=== PATIENT | male | born 1930 | race Caucasian/White ===

== ENCOUNTER 2019-01-13 17:41 | Emergency (ER) | payer MEDICARE, OTHER ==
[2019-01-13] MEDS ORDERED: HYDROCODONE/ACETAMINOPHEN 10/325 MG TAB ONE (19:43)
== END 2019-01-13 21:02 | disposition home or self-care (01) ==
LOC: EDH 17:41
DX: S81.802A Unspecified open wound, left lower leg, initial encounter (principal); X58.XXXA Exposure to other specified factors, initial encounter; Y93.89 Activity, other specified; Y92.89 Other specified places as the place of occurrence of the external cause; Y99.8 Other external cause status

== ENCOUNTER 2019-01-15 17:59 | Emergency (ER) | payer OTHER ==
[~2019-01-15] VITALS: Ht 175.3 cm; Wt 120.7 kg
[2019-01-15 19:36] LABS: HEMATOCRIT 41.6 % (42-54); MEAN CORPUSCULAR HEMOGLOBIN 29.1 pg (27.0-33.0); MEAN CORPUSCULAR VOLUME 88.1 fL (79-99); MONOCYTES % (AUTO) 12.8 % (3.0-13.0); NEUTROPHILS % (AUTO) 53.2 % (40.0-77.0); PLATELET COUNT (AUTO) 222 K/uL (130-400); RED BLOOD CELL COUNT(AUTO) 4.72 MIL/uL (4.50-6.20); RED CELL DISTRIBUTION WIDTH 14.5 % (11.0-15.5); WHITE BLOOD COUNT (AUTO) 5.5 K/uL (4.8-10.8)
[2019-01-15 19:45] LABS: CREATININE 1.4 mg/dL (0.5-1.5); POTASSIUM 4.3 mmol/L (3.5-5.1)
[2019-01-15 19:50] LABS: ALBUMIN 2.9 g/dL (3.5-5.0); BILIRUBIN,TOTAL 0.3 mg/dL (0.2-1.0); TOTAL PROTEIN, SERUM 7.1 g/dL (6.0-8.3)
[2019-01-15 20:02] LABS: B-TYPE NATRIURETIC PEPTIDE 47 pg/mL (0-100)
[2019-01-15] MEDS ORDERED: ZINC OXIDE OINT 30GM TUBE TP SCH (21:45)
== END 2019-01-15 22:21 | disposition home or self-care (01) ==
LOC: EDH 17:59
DX: I87.2 Venous insufficiency (chronic) (peripheral) (principal); R60.0 Localized edema; Z87.891 Personal history of nicotine dependence
CPT/HCPCS: 36415; 80053; 83880; 85025; 93005

== ENCOUNTER 2019-02-13 20:35 | Emergency (ER) | payer OTHER ==
[2019-02-13 21:27] LABS: BASOPHILS % (AUTO) 1.3 % (0.0-5.0); EOSINOPHILS % (AUTO) 4.8 % (0.0-8.0); HEMATOCRIT 39.5 % (42-54); LYMPHOCYTES % (AUTO) 25.3 % (21.0-51.0); MEAN CORPUSCULAR HEMOGLOBIN 29.5 pg (27.0-33.0); MEAN CORPUSCULAR HGB CONC 33.1 g/dL (32.0-36.0); MEAN CORPUSCULAR VOLUME 89.1 fL (79-99); MONOCYTES % (AUTO) 11.8 % (3.0-13.0); NEUTROPHILS % (AUTO) 56.8 % (40.0-77.0); NUCLEATED RED BLOOD CELLS 0.1 % (0.0-0.19); PLATELET COUNT (AUTO) 203 K/uL (130-400); RED BLOOD CELL COUNT(AUTO) 4.44 MIL/uL (4.50-6.20); RED CELL DISTRIBUTION WIDTH 14.5 % (11.0-15.5); WHITE BLOOD COUNT (AUTO) 6.3 K/uL (4.8-10.8)
[2019-02-13 21:40] LABS: CREATININE 1.2 mg/dL (0.5-1.5); POTASSIUM 4.5 mmol/L (3.5-5.1)
[2019-02-13 21:45] LABS: ALBUMIN 2.9 g/dL (3.5-5.0); BILIRUBIN,TOTAL 0.3 mg/dL (0.2-1.0); TOTAL PROTEIN, SERUM 7.3 g/dL (6.0-8.3)
[2019-02-13 22:07] LABS: B-TYPE NATRIURETIC PEPTIDE 67 pg/mL (0-100)
== END 2019-02-14 00:18 | disposition home or self-care (01) ==
LOC: EDH 20:35
DX: I87.2 Venous insufficiency (chronic) (peripheral) (principal); R60.0 Localized edema
CPT/HCPCS: 36415; 80053; 83880; 84145; 85025

== ENCOUNTER → 2019-02-19 | Outpatient (CLI) | payer OTHER ==
[2019-02-19 13:04] VITALS: BP 141/67
== END | disposition home or self-care (01) ==
LOC: WHH 09:30
PROVIDERS: ATTEND Surgery
DX: I83.018 Varicose veins of right lower extremity with ulcer other part of lower leg (principal); L97.811 Non-pressure chronic ulcer of other part of right lower leg limited to breakdown of skin; I83.028 Varicose veins of left lower extremity with ulcer other part of lower leg; L97.821 Non-pressure chronic ulcer of other part of left lower leg limited to breakdown of skin; I10 Essential (primary) hypertension; I87.2 Venous insufficiency (chronic) (peripheral); I89.0 Lymphedema, not elsewhere classified; I25.10 Atherosclerotic heart disease of native coronary artery without angina pectoris; K21.9 Gastro-esophageal reflux disease without esophagitis; E78.5 Hyperlipidemia, unspecified; E03.9 Hypothyroidism, unspecified; Z87.891 Personal history of nicotine dependence
CPT/HCPCS: A6197; A6253; G0463; L3260

== ENCOUNTER → 2019-02-26 | Outpatient (CLI) | payer OTHER ==
[2019-02-26 13:11] VITALS: BP 162/95
== END | disposition home or self-care (01) ==
LOC: WHH 11:15
PROVIDERS: ATTEND Surgery
DX: I83.018 Varicose veins of right lower extremity with ulcer other part of lower leg (principal); L97.811 Non-pressure chronic ulcer of other part of right lower leg limited to breakdown of skin; I83.028 Varicose veins of left lower extremity with ulcer other part of lower leg; L97.821 Non-pressure chronic ulcer of other part of left lower leg limited to breakdown of skin; I10 Essential (primary) hypertension; I87.2 Venous insufficiency (chronic) (peripheral); I89.0 Lymphedema, not elsewhere classified; I25.10 Atherosclerotic heart disease of native coronary artery without angina pectoris; K21.9 Gastro-esophageal reflux disease without esophagitis; E78.5 Hyperlipidemia, unspecified; E03.9 Hypothyroidism, unspecified; Z87.891 Personal history of nicotine dependence
CPT/HCPCS: A6197 ×2; G0463

== ENCOUNTER → 2019-03-05 | Outpatient (CLI) | payer OTHER ==
[2019-03-05 14:09] VITALS: BP 175/82
== END | disposition home or self-care (01) ==
LOC: WHH 11:20
PROVIDERS: ATTEND Surgery
DX: I83.018 Varicose veins of right lower extremity with ulcer other part of lower leg (principal); L97.811 Non-pressure chronic ulcer of other part of right lower leg limited to breakdown of skin; I83.028 Varicose veins of left lower extremity with ulcer other part of lower leg; L97.821 Non-pressure chronic ulcer of other part of left lower leg limited to breakdown of skin; I10 Essential (primary) hypertension; I87.2 Venous insufficiency (chronic) (peripheral); I89.0 Lymphedema, not elsewhere classified; I25.10 Atherosclerotic heart disease of native coronary artery without angina pectoris; K21.9 Gastro-esophageal reflux disease without esophagitis; E78.5 Hyperlipidemia, unspecified; E03.9 Hypothyroidism, unspecified; Z87.891 Personal history of nicotine dependence
CPT/HCPCS: 87070; 87077 ×2; 87186 ×2; A6197; G0463

== ENCOUNTER → 2019-03-23 | Outpatient (CLI) | payer OTHER ==
[2019-03-23 13:23] VITALS: BP 138/64
== END | disposition home or self-care (01) ==
LOC: WHH 10:30
PROVIDERS: ATTEND Surgery
DX: I83.018 Varicose veins of right lower extremity with ulcer other part of lower leg (principal); L97.811 Non-pressure chronic ulcer of other part of right lower leg limited to breakdown of skin; I83.028 Varicose veins of left lower extremity with ulcer other part of lower leg; I10 Essential (primary) hypertension; I87.2 Venous insufficiency (chronic) (peripheral); I89.0 Lymphedema, not elsewhere classified; I25.10 Atherosclerotic heart disease of native coronary artery without angina pectoris; K21.9 Gastro-esophageal reflux disease without esophagitis; E78.5 Hyperlipidemia, unspecified; E03.9 Hypothyroidism, unspecified; Z87.891 Personal history of nicotine dependence
CPT/HCPCS: 73630; A6196; A6197; G0463

== ENCOUNTER → 2019-03-30 | Outpatient (CLI) | payer OTHER ==
[~2019-03-30] MED LIST: GENTAMICIN SULFATE 15 GM CREAM.GM. TP ONE
[2019-03-30 11:27] VITALS: BP 135/55
== END | disposition home or self-care (01) ==
LOC: WHH 10:30
PROVIDERS: ATTEND Surgery
DX: I83.018 Varicose veins of right lower extremity with ulcer other part of lower leg (principal); L97.811 Non-pressure chronic ulcer of other part of right lower leg limited to breakdown of skin; I83.028 Varicose veins of left lower extremity with ulcer other part of lower leg; L97.821 Non-pressure chronic ulcer of other part of left lower leg limited to breakdown of skin; I87.2 Venous insufficiency (chronic) (peripheral); I89.0 Lymphedema, not elsewhere classified; I10 Essential (primary) hypertension; I25.10 Atherosclerotic heart disease of native coronary artery without angina pectoris; K21.9 Gastro-esophageal reflux disease without esophagitis; E78.5 Hyperlipidemia, unspecified; E03.9 Hypothyroidism, unspecified; Z87.891 Personal history of nicotine dependence
CPT/HCPCS: A6197; G0463

== ENCOUNTER → 2019-04-06 | Outpatient (CLI) | payer OTHER ==
[~2019-04-06] MED LIST changes: +LIDOCAINE HCL 4% LTA SOL 4 ML VIAL TP ONE
[2019-04-06 12:10] VITALS: BP 175/70
== END | disposition home or self-care (01) ==
LOC: WHH 10:25
PROVIDERS: ATTEND Surgery
DX: I83.018 Varicose veins of right lower extremity with ulcer other part of lower leg (principal); L97.811 Non-pressure chronic ulcer of other part of right lower leg limited to breakdown of skin; I83.028 Varicose veins of left lower extremity with ulcer other part of lower leg; L97.821 Non-pressure chronic ulcer of other part of left lower leg limited to breakdown of skin; I10 Essential (primary) hypertension; I25.10 Atherosclerotic heart disease of native coronary artery without angina pectoris; K21.9 Gastro-esophageal reflux disease without esophagitis; E78.5 Hyperlipidemia, unspecified; E03.9 Hypothyroidism, unspecified; I87.2 Venous insufficiency (chronic) (peripheral); I89.0 Lymphedema, not elsewhere classified; Z87.891 Personal history of nicotine dependence
CPT/HCPCS: 87070; 87077; 87186; A6197; G0463

== ENCOUNTER → 2019-04-13 | Outpatient (CLI) | payer OTHER ==
[2019-04-13 16:50] VITALS: BP 163/73
== END | disposition home or self-care (01) ==
LOC: WHH 10:20
PROVIDERS: ATTEND Surgery
DX: I83.018 Varicose veins of right lower extremity with ulcer other part of lower leg (principal); L97.811 Non-pressure chronic ulcer of other part of right lower leg limited to breakdown of skin; I83.028 Varicose veins of left lower extremity with ulcer other part of lower leg; L97.821 Non-pressure chronic ulcer of other part of left lower leg limited to breakdown of skin; I89.0 Lymphedema, not elsewhere classified; I10 Essential (primary) hypertension; E78.5 Hyperlipidemia, unspecified; E03.9 Hypothyroidism, unspecified; K21.9 Gastro-esophageal reflux disease without esophagitis; I25.10 Atherosclerotic heart disease of native coronary artery without angina pectoris; I87.2 Venous insufficiency (chronic) (peripheral); Z87.891 Personal history of nicotine dependence
CPT/HCPCS: A6209; G0463

== ENCOUNTER → 2019-05-04 | Outpatient (CLI) | payer OTHER ==
[~2019-05-04] MED LIST changes: +CADEXOMER IODINE 40 GM GEL TP ONE; -GENTAMICIN SULFATE 15 GM CREAM.GM. TP ONE; -LIDOCAINE HCL 4% LTA SOL 4 ML VIAL TP ONE
[2019-05-04 15:47] VITALS: BP 168/72
== END | disposition home or self-care (01) ==
LOC: WHH 10:00
PROVIDERS: ATTEND Surgery
DX: I83.018 Varicose veins of right lower extremity with ulcer other part of lower leg (principal); L97.811 Non-pressure chronic ulcer of other part of right lower leg limited to breakdown of skin; I83.028 Varicose veins of left lower extremity with ulcer other part of lower leg; L97.821 Non-pressure chronic ulcer of other part of left lower leg limited to breakdown of skin; I25.10 Atherosclerotic heart disease of native coronary artery without angina pectoris; I10 Essential (primary) hypertension; I87.2 Venous insufficiency (chronic) (peripheral); I89.0 Lymphedema, not elsewhere classified; K21.9 Gastro-esophageal reflux disease without esophagitis; E78.5 Hyperlipidemia, unspecified; E03.9 Hypothyroidism, unspecified; Z87.891 Personal history of nicotine dependence
CPT/HCPCS: A6450; G0463

== ENCOUNTER → 2019-05-11 | Outpatient (CLI) | payer OTHER ==
[2019-05-11 16:16] VITALS: BP 154/78
== END | disposition home or self-care (01) ==
LOC: WHH 11:45
PROVIDERS: ATTEND Surgery
DX: I83.018 Varicose veins of right lower extremity with ulcer other part of lower leg (principal); L97.811 Non-pressure chronic ulcer of other part of right lower leg limited to breakdown of skin; I83.028 Varicose veins of left lower extremity with ulcer other part of lower leg; L97.821 Non-pressure chronic ulcer of other part of left lower leg limited to breakdown of skin; I25.10 Atherosclerotic heart disease of native coronary artery without angina pectoris; I10 Essential (primary) hypertension; I87.2 Venous insufficiency (chronic) (peripheral); I89.0 Lymphedema, not elsewhere classified; K21.9 Gastro-esophageal reflux disease without esophagitis; E78.5 Hyperlipidemia, unspecified; E03.9 Hypothyroidism, unspecified; Z87.891 Personal history of nicotine dependence
CPT/HCPCS: G0463

== ENCOUNTER → 2019-05-13 | Outpatient (CLI) | payer OTHER ==
[~2019-05-13] MED LIST changes: -CADEXOMER IODINE 40 GM GEL TP ONE; +LIDOCAINE HCL 4% LTA SOL 4 ML VIAL TP ONE
[2019-05-13 15:07] VITALS: BP 165/81
== END | disposition home or self-care (01) ==
LOC: WHH 11:00
PROVIDERS: ATTEND Surgery
DX: I83.018 Varicose veins of right lower extremity with ulcer other part of lower leg (principal); L97.811 Non-pressure chronic ulcer of other part of right lower leg limited to breakdown of skin; I83.028 Varicose veins of left lower extremity with ulcer other part of lower leg; L97.821 Non-pressure chronic ulcer of other part of left lower leg limited to breakdown of skin; I25.10 Atherosclerotic heart disease of native coronary artery without angina pectoris; I10 Essential (primary) hypertension; I87.2 Venous insufficiency (chronic) (peripheral); I89.0 Lymphedema, not elsewhere classified; K21.9 Gastro-esophageal reflux disease without esophagitis; E78.5 Hyperlipidemia, unspecified; E03.9 Hypothyroidism, unspecified; Z87.891 Personal history of nicotine dependence
CPT/HCPCS: A6452; G0463

== ENCOUNTER 2019-05-26 15:19 | Inpatient (IN) | payer OTHER ==
[~2019-05-26] VITALS: Ht 172.7 cm; Wt 116.0 kg
[2019-05-26] MEDS ORDERED: CLINDAMYCIN 900 MG/D5% WATER 50 ML IV ONE (16:00)
[2019-05-26 16:21] LABS: BASOPHILS % (AUTO) 1.3 % (0.0-5.0); EOSINOPHILS % (AUTO) 3.6 % (0.0-8.0); HEMATOCRIT 40.2 % (42-54); MEAN CORPUSCULAR HEMOGLOBIN 26.1 pg (27.0-33.0); MEAN CORPUSCULAR HGB CONC 30.3 g/dL (32.0-36.0); MEAN CORPUSCULAR VOLUME 86.1 fL (79-99); MONOCYTES % (AUTO) 10.9 % (3.0-13.0); NEUTROPHILS % (AUTO) 61.5 % (40.0-77.0); PLATELET COUNT (AUTO) 287 K/uL (130-400); RED BLOOD CELL COUNT(AUTO) 4.67 MIL/uL (4.50-6.20); RED CELL DISTRIBUTION WIDTH 15.4 % (11.0-15.5); WHITE BLOOD COUNT (AUTO) 6.1 K/uL (4.8-10.8)
[2019-05-26 16:22] LABS: APPEARANCE,URINE Clear (CLEAR); BILIRUBIN,URINE Negative (NEGATIVE); COLOR,URINE Yellow (YELLOW); GLUCOSE, URINE (UA) Negative (NEGATIVE); KETONES,URINE Negative (NEGATIVE); LEUKOCYTE ESTERASE ,URINE Negative (NEGATIVE); NITRATE,URINE Negative (NEGATIVE); OCCULT BLOOD,URINE Negative (NEGATIVE); PROTEIN,URINE Negative (NEGATIVE); UROBILINOGEN,URINE 0.2 mg/dL (0.2-1.0)
[2019-05-26 16:36] LABS: CREATININE 1.4 mg/dL (0.5-1.5); POTASSIUM 4.4 mmol/L (3.5-5.1)
[2019-05-26 16:38] LABS: INR 0.96 (0.85-1.15); PARTIAL THROMBOPLASTIN TIME 28.7 SEC (26.3-35.5); PROTHROMBIN TIME 10.4 SEC (9.6-11.6)
[2019-05-26 16:41] LABS: ALBUMIN 2.8 g/dL (3.5-5.0); BILIRUBIN,TOTAL 0.2 mg/dL (0.2-1.0); TOTAL PROTEIN, SERUM 7.7 g/dL (6.0-8.3)
[2019-05-26 16:51] LABS: B-TYPE NATRIURETIC PEPTIDE 52 pg/mL (0-100)
[2019-05-26] MEDS ORDERED: ACETAMINOPHEN 325 MG TAB PO PRN (17:15)
[2019-05-26] MEDS ORDERED: CLINDAMYCIN 900 MG/D5% WATER 50 ML IV SCH (17:15)
[2019-05-26] MEDS ORDERED: VANCOMYCIN PROTOCOL PER PHARMACY IV SCH (17:45)
[2019-05-26] MEDS ORDERED: ZOSYN 3.375GM+NS 50ML 50 ML IV ONE (18:30)
[2019-05-26] MEDS ORDERED: ACETAMINOPHEN-CODEINE 300/30MG TAB ONE (18:30)
[2019-05-26] MEDS ORDERED: COMPOUND IV REFRIGERATED 1 EACH IVSOLN MISC PRN (18:45)
[2019-05-26] MEDS ORDERED: VANCOMYCIN 1.5 GM in SODIUM CHLORIDE 0.9% 250 ML IV ONE (19:00)
[2019-05-26] MEDS ORDERED: ENOXAPARIN SODIUM 40 MG/0.4 ML SYRINGE SQ ONE (19:02)
[2019-05-26] MEDS: ZOSYN 3.375GM+NS 50ML 50 ML IV SCH (21:00)
[2019-05-26] MEDS ORDERED: MORPHINE SULFATE 4 MG/1ML SYG ONE (21:02)
[2019-05-26 23:00] VITALS: BP 144/77
[2019-05-27] MEDS ORDERED: PHARMACY COMMUNICATION MISC SCH (03:30)
[2019-05-27 04:00] VITALS: BP 126/62
[2019-05-27] MEDS: ZOSYN 3.375GM+NS 50ML 50 ML IV SCH ×3 (05:00→21:00)
[2019-05-27] MEDS ORDERED: VANCOMYCIN 1.5 GM in SODIUM CHLORIDE 0.9% 250 ML IV SCH (06:45)
[2019-05-27 08:24] VITALS: BP 137/66
[2019-05-27] MEDS: ONDANSETRON HCL 4 MG/2 ML VIAL IVP PRN ×2 (08:43→11:26)
[2019-05-27] MEDS: MORPHINE SULFATE 4 MG/1ML SYG IVP PRN ×3 (08:45→17:50)
[2019-05-27] MEDS: ENOXAPARIN SODIUM 40 MG/0.4 ML SYRINGE SQ SCH (10:19)
--- NOTE | 2019-05-27 10:26 | NUR ---
INITIAL SW met with patient. He states he lives alone and has no home services. Patient did state that he had been coming to wound care at this hospital. DME: [facility]. Patient reports that he is able to complete ADL's and drives. Patient is and is Service Connected. PCP is Dr. Abraham Blanco. Pharmacy is [facility]. Patient states he wants to go home when discharged. Addendum: 05/27/19 at 1029 by TU SANTIAGO SS Amended: Links added.
[2019-05-27] MEDS ORDERED: VANCOMYCIN 1GM+NS 250ML 250 ML IV SCH (11:00)
[2019-05-27 11:29] VITALS: BP 124/58
[2019-05-27] MEDS: ACETAMINOPHEN-CODEINE 300/30MG TAB PO PRN (11:32)
[2019-05-27 11:38] LABS: EOSINOPHILS % (AUTO) 3.2 % (0.0-8.0); HEMATOCRIT 35.6 % (42-54); LYMPHOCYTES % (AUTO) 17.3 % (21.0-51.0); MEAN CORPUSCULAR HEMOGLOBIN 26.3 pg (27.0-33.0); MEAN CORPUSCULAR HGB CONC 30.6 g/dL (32.0-36.0); MONOCYTES % (AUTO) 13.5 % (3.0-13.0); NEUTROPHILS % (AUTO) 64.4 % (40.0-77.0); PLATELET COUNT (AUTO) 242 K/uL (130-400); RED BLOOD CELL COUNT(AUTO) 4.14 MIL/uL (4.50-6.20); RED CELL DISTRIBUTION WIDTH 15.6 % (11.0-15.5); WHITE BLOOD COUNT (AUTO) 7.2 K/uL (4.8-10.8)
[2019-05-27 12:25] LABS: CREATININE 1.4 mg/dL (0.5-1.5); POTASSIUM 4.3 mmol/L (3.5-5.1)
--- NOTE | 2019-05-27 15:45 | NUR ---
[facility] Referral MD order for referral to [facility]. SW met with patient and informed him of MD order for [facility]. Patient signed GILMA/Choice form. Form placed in chart. Referral sent. Brandee Montelongo, Woods Laborer for [facility] informed. BONIFACIO also contacted Nanette Chu, Inpatient [employer] Taill[employer] Assembler at [place] and notified of referral. Pending acceptance and [place] authorization.
[2019-05-27 16:54] VITALS: BP 136/49
--- NOTE | 2019-05-27 17:00 | NUR ---
[facility] CONSULT PATIENT ASSESSED REQUESTED: PATIENT PRESENTS WITH VENOUS ULCERS TO BLE; [facility] RECOMMENDATIONS SUBMITTED. Addendum: 05/28/19 at 1530 by GABE LIM LVN LVN W Amended: Links added.
[2019-05-27 19:49] VITALS: BP 140/63
[2019-05-28] VITALS (7 sets, daily range): BP systolic 118–146; BP diastolic 57–86
[2019-05-28 05:47] LABS: BASOPHILS % (AUTO) 1.1 % (0.0-5.0); HEMATOCRIT 35.6 % (42-54); LYMPHOCYTES % (AUTO) 21.1 % (21.0-51.0); MEAN CORPUSCULAR HGB CONC 30.1 g/dL (32.0-36.0); MEAN CORPUSCULAR VOLUME 86.6 fL (79-99); MONOCYTES % (AUTO) 12.4 % (3.0-13.0); NEUTROPHILS % (AUTO) 60.8 % (40.0-77.0); PLATELET COUNT (AUTO) 239 K/uL (130-400); RED BLOOD CELL COUNT(AUTO) 4.11 MIL/uL (4.50-6.20); RED CELL DISTRIBUTION WIDTH 15.7 % (11.0-15.5); WHITE BLOOD COUNT (AUTO) 7.2 K/uL (4.8-10.8)
[2019-05-28] MEDS: VANCOMYCIN 1GM+NS 250ML 250 ML IV SCH (05:52)
[2019-05-28] MEDS: ZOSYN 3.375GM+NS 50ML 50 ML IV SCH ×3 (05:52→20:36)
[2019-05-28 05:57] LABS: CREATININE 1.3 mg/dL (0.5-1.5); POTASSIUM 4.3 mmol/L (3.5-5.1)
[2019-05-28] MEDS: ACETAMINOPHEN-CODEINE 300/30MG TAB PO PRN ×2 (10:14→16:52)
[2019-05-28] MEDS: HONEY 1 APPL/ML TUBE TP SCH (10:14)
[2019-05-28] MEDS: ENOXAPARIN SODIUM 40 MG/0.4 ML SYRINGE SQ SCH (11:02)
--- NOTE | 2019-05-28 11:51 | NUR ---
CM Note: [facility] pending approval CM spoke to Brandee saunders/Yan[facility], pt pending [facility] approval at this time. MOT semi-filled out pending to be completed once approve. EMS arranged and faxed for today, primary nurse to call [facility] once pt ready to DC. Primary nurse aware. CM to cont to follow up.
[2019-05-28] MEDS: MORPHINE SULFATE 4 MG/1ML SYG IVP PRN (23:44)
[2019-05-29 04:00] VITALS: BP 125/56
[2019-05-29] MEDS: ZOSYN 3.375GM+NS 50ML 50 ML IV SCH ×3 (04:11→21:00)
--- NOTE | 2019-05-29 06:04 | NUR ---
WOUND CARE STASIS ULCERS TO BILATERAL LE'S MID POSTERIOR AND LATERAL ASPECTS ON BOTH LEGS,CLEANSED THOROUGHLY WITH STERILE NS , PAT DRIED ,MEDIHONEY APPLIED ,TOPPED WITH VASELINE GAUZE AND STERILE 4X4'S AND REINFORCED WITH KERLIX, TOLERATED WELL , PHOTOGRAPHED Addendum: 05/29/19 at 0606 by KAREN LAU RN RN Amended: Links added.
[2019-05-29 06:55] LABS: BASOPHILS % (AUTO) 1.2 % (0.0-5.0); EOSINOPHILS % (AUTO) 5.6 % (0.0-8.0); HEMATOCRIT 40.2 % (42-54); LYMPHOCYTES % (AUTO) 20.8 % (21.0-51.0); MEAN CORPUSCULAR HEMOGLOBIN 26.2 pg (27.0-33.0); MEAN CORPUSCULAR HGB CONC 29.9 g/dL (32.0-36.0); MEAN CORPUSCULAR VOLUME 87.8 fL (79-99); NEUTROPHILS % (AUTO) 62.6 % (40.0-77.0); PLATELET COUNT (AUTO) 276 K/uL (130-400); RED BLOOD CELL COUNT(AUTO) 4.58 MIL/uL (4.50-6.20); RED CELL DISTRIBUTION WIDTH 15.4 % (11.0-15.5); WHITE BLOOD COUNT (AUTO) 7.7 K/uL (4.8-10.8)
[2019-05-29] MEDS: VANCOMYCIN 1GM+NS 250ML 250 ML IV SCH (07:25)
[2019-05-29 07:30] VITALS: BP 132/63
[2019-05-29] MEDS ORDERED: COMPOUND IV REFRIGERATED 1 EACH IVSOLN MISC PRN (08:00)
[2019-05-29 08:08] LABS: CREATININE 1.5 mg/dL (0.5-1.5)
[2019-05-29] MEDS: HONEY 1 APPL/ML TUBE TP SCH (09:00)
[2019-05-29] MEDS: ENOXAPARIN SODIUM 40 MG/0.4 ML SYRINGE SQ SCH (09:19)
[2019-05-29 11:00] VITALS: BP 135/66
[2019-05-29] MEDS: MORPHINE SULFATE 4 MG/1ML SYG IVP PRN ×2 (13:41→18:23)
[2019-05-29 16:00] VITALS: BP 128/62
[2019-05-29] MEDS: VANCOMYCIN 750MG + NS 250 ML IV SCH ×2 (17:24)
[2019-05-29 20:00] VITALS: BP 142/64
[2019-05-30 04:00] VITALS: BP 139/68
[2019-05-30] MEDS: ZOSYN 3.375GM+NS 50ML 50 ML IV SCH ×3 (04:03→21:24)
[2019-05-30 05:11] LABS: BASOPHILS % (AUTO) 1.1 % (0.0-5.0); EOSINOPHILS % (AUTO) 6.5 % (0.0-8.0); HEMATOCRIT 35.1 % (42-54); LYMPHOCYTES % (AUTO) 18.1 % (21.0-51.0); MEAN CORPUSCULAR HEMOGLOBIN 26.2 pg (27.0-33.0); MEAN CORPUSCULAR HGB CONC 30.5 g/dL (32.0-36.0); MEAN CORPUSCULAR VOLUME 85.8 fL (79-99); MONOCYTES % (AUTO) 13.7 % (3.0-13.0); PLATELET COUNT (AUTO) 228 K/uL (130-400); RED BLOOD CELL COUNT(AUTO) 4.09 MIL/uL (4.50-6.20); RED CELL DISTRIBUTION WIDTH 15.3 % (11.0-15.5); WHITE BLOOD COUNT (AUTO) 6.3 K/uL (4.8-10.8)
[2019-05-30 05:19] LABS: CREATININE 1.3 mg/dL (0.5-1.5); POTASSIUM 3.9 mmol/L (3.5-5.1)
[2019-05-30] MEDS: VANCOMYCIN 750MG + NS 250 ML IV SCH ×4 (06:11→19:02)
[2019-05-30] MEDS: MORPHINE SULFATE 4 MG/1ML SYG IVP PRN ×2 (06:16→12:28)
[2019-05-30 07:45] VITALS: BP 122/61
[2019-05-30] MEDS: HONEY 1 APPL/ML TUBE TP SCH (09:00)
[2019-05-30] MEDS: ENOXAPARIN SODIUM 40 MG/0.4 ML SYRINGE SQ SCH (09:03)
[2019-05-30] MEDS ORDERED: LACTULOSE 20 GM/30 ML UDCUP ONE (10:54)
[2019-05-30 12:00] VITALS: BP 118/45
[2019-05-30] MEDS: ACETAMINOPHEN-CODEINE 300/30MG TAB PO PRN (13:45)
[2019-05-30 16:00] VITALS: BP 137/62
[2019-05-30] MEDS: HYDROCORTISONE 2.5% 28GM CREAM TP PRN (17:46)
--- NOTE | 2019-05-30 18:23 | NUR ---
called to lab due to pending vanco trough .. pending med to be given ,pending results
[2019-05-30 21:14] VITALS: BP 128/66
[2019-05-30] MEDS: LACTULOSE 20 GM/30 ML UDCUP PO PRN (21:25)
[2019-05-31] MEDS: MORPHINE SULFATE 4 MG/1ML SYG IVP PRN ×3 (02:06→17:15)
[2019-05-31 03:55] VITALS: BP 132/59
[2019-05-31] MEDS: ZOSYN 3.375GM+NS 50ML 50 ML IV SCH ×3 (04:09→19:51)
[2019-05-31 05:16] LABS: BASOPHILS % (AUTO) 1.2 % (0.0-5.0); EOSINOPHILS % (AUTO) 6.2 % (0.0-8.0); LYMPHOCYTES % (AUTO) 19.9 % (21.0-51.0); MEAN CORPUSCULAR HEMOGLOBIN 26.1 pg (27.0-33.0); MONOCYTES % (AUTO) 11.1 % (3.0-13.0); NEUTROPHILS % (AUTO) 60.7 % (40.0-77.0); PLATELET COUNT (AUTO) 256 K/uL (130-400); RED BLOOD CELL COUNT(AUTO) 4.14 MIL/uL (4.50-6.20); RED CELL DISTRIBUTION WIDTH 15.3 % (11.0-15.5); WHITE BLOOD COUNT (AUTO) 6.8 K/uL (4.8-10.8)
[2019-05-31 05:42] LABS: CREATININE 1.3 mg/dL (0.5-1.5); POTASSIUM 4.5 mmol/L (3.5-5.1)
[2019-05-31] MEDS: VANCOMYCIN 750MG + NS 250 ML IV SCH ×4 (05:49→19:05)
[2019-05-31 07:30] VITALS: BP 112/59
[2019-05-31] MEDS: ENOXAPARIN SODIUM 40 MG/0.4 ML SYRINGE SQ SCH (09:02)
[2019-05-31 11:00] VITALS: BP 121/63
[2019-05-31] MEDS: HYDROCORTISONE 2.5% 28GM CREAM TP PRN (13:53)
[2019-05-31] MEDS: HONEY 1 APPL/ML TUBE TP SCH (13:53)
[2019-05-31 16:00] VITALS: BP 138/64
--- NOTE | 2019-05-31 16:54 | NUR ---
CM Note: [facility] pending ins auth CM spoke to Brandee saunders/Yaneli, pt still pending ins auth w/[facility] at this time. Primary nurse aware. CM to cont to follow up.
[2019-05-31 20:36] VITALS: BP 135/60
[2019-05-31 23:48] VITALS: BP 130/57
[2019-06-01 04:15] VITALS: BP 134/72
[2019-06-01] MEDS: VANCOMYCIN 750MG + NS 250 ML IV SCH ×4 (04:18→18:00)
[2019-06-01] MEDS: ZOSYN 3.375GM+NS 50ML 50 ML IV SCH ×2 (04:23→12:05)
[2019-06-01 05:24] LABS: BASOPHILS % (AUTO) 1.1 % (0.0-5.0); EOSINOPHILS % (AUTO) 6.2 % (0.0-8.0); HEMATOCRIT 35.7 % (42-54); LYMPHOCYTES % (AUTO) 21.3 % (21.0-51.0); MEAN CORPUSCULAR HGB CONC 30.3 g/dL (32.0-36.0); MONOCYTES % (AUTO) 12.7 % (3.0-13.0); NEUTROPHILS % (AUTO) 58.2 % (40.0-77.0); PLATELET COUNT (AUTO) 221 K/uL (130-400); RED BLOOD CELL COUNT(AUTO) 4.15 MIL/uL (4.50-6.20); RED CELL DISTRIBUTION WIDTH 15.2 % (11.0-15.5); WHITE BLOOD COUNT (AUTO) 6.2 K/uL (4.8-10.8)
[2019-06-01] MEDS: DIPHENHYDRAMINE HCL 25 MG CAPSULE PO PRN ×2 (05:27→20:31)
[2019-06-01 05:36] LABS: CREATININE 1.3 mg/dL (0.5-1.5); POTASSIUM 4.2 mmol/L (3.5-5.1)
[2019-06-01 07:30] VITALS: BP 133/57
[2019-06-01] MEDS: MORPHINE SULFATE 4 MG/1ML SYG IVP PRN ×4 (07:45→20:31)
[2019-06-01] MEDS: HONEY 1 APPL/ML TUBE TP SCH (09:02)
[2019-06-01] MEDS: ENOXAPARIN SODIUM 40 MG/0.4 ML SYRINGE SQ SCH (09:02)
[2019-06-01 11:00] VITALS: BP 118/48
[2019-06-01] MEDS ORDERED: HYDROMORPHONE HCL 0.5 MG/0.5 ML ML ONE (13:41)
[2019-06-01] MEDS ORDERED: HYDROMORPHONE 1 MG/1 ML AMP IVP ONE (14:45)
--- NOTE | 2019-06-01 15:15 | NUR ---
RD NOTIFICATION RD CONSULTS DUE TO LOS X 6. PENDING [facility] PLACEMENT FOR FURTHER TREATMENT. DIET: REGULAR/ NO SALT. PO INTAKE 50% AND REPORTS HAVING POOR APPETITE. BLE ULCER AND ABSCESS NOTED. LABS AND MEDS REVIEWED. LBM: 05/30. PT IN A LOT OF PAIN AT TIME OF VISIT, RD UNABLE TO GET ADEQUATE RESPONSES AT THIS TIME. PT ASKED FOR RD TO COME BACK AT A DIFFERENT TIME. RD WILL COMPLETE PTS' NUTRITION ASSESSMENT AT A DIFFERENT TIME. THANK YOU. Addendum: 06/01/19 at [address] Amended: Links added.
[2019-06-01 16:00] VITALS: BP 120/54
[2019-06-01] MEDS: LACTULOSE 20 GM/30 ML UDCUP PO PRN (18:11)
[2019-06-01] MEDS ORDERED: VANCOMYCIN 1GM+NS 250ML 250 ML IV ONE (19:00)
[2019-06-01 20:06] VITALS: BP 144/59
[2019-06-02] MEDS: ZOSYN 3.375GM+NS 50ML 50 ML IV SCH ×4 (00:10→21:22)
[2019-06-02 00:14] VITALS: BP 140/60
[2019-06-02] MEDS: MORPHINE SULFATE 4 MG/1ML SYG IVP PRN ×3 (03:02→11:03)
[2019-06-02] MEDS ORDERED: VANCOMYCIN 1GM+NS 250ML 250 ML IV ONE (04:28)
[2019-06-02] MEDS: VANCOMYCIN 1GM+NS 250ML 250 ML IV SCH ×2 (04:30→18:31)
[2019-06-02] MEDS: VANCOMYCIN 750MG + NS 250 ML IV SCH ×4 (04:31→17:25)
[2019-06-02 04:53] VITALS: BP 147/81
[2019-06-02 05:44] LABS: BASOPHILS % (AUTO) 1.3 % (0.0-5.0); EOSINOPHILS % (AUTO) 6.7 % (0.0-8.0); HEMATOCRIT 39.2 % (42-54); LYMPHOCYTES % (AUTO) 24.1 % (21.0-51.0); MEAN CORPUSCULAR HEMOGLOBIN 26.3 pg (27.0-33.0); MEAN CORPUSCULAR HGB CONC 30.1 g/dL (32.0-36.0); MEAN CORPUSCULAR VOLUME 87.3 fL (79-99); MONOCYTES % (AUTO) 11.7 % (3.0-13.0); NEUTROPHILS % (AUTO) 55.6 % (40.0-77.0); PLATELET COUNT (AUTO) 228 K/uL (130-400); RED BLOOD CELL COUNT(AUTO) 4.49 MIL/uL (4.50-6.20); RED CELL DISTRIBUTION WIDTH 15.3 % (11.0-15.5); WHITE BLOOD COUNT (AUTO) 6.8 K/uL (4.8-10.8)
[2019-06-02 05:59] LABS: ALBUMIN 2.2 g/dL (3.5-5.0); BILIRUBIN,TOTAL 0.2 mg/dL (0.2-1.0); CREATININE 1.3 mg/dL (0.5-1.5); POTASSIUM 4.3 mmol/L (3.5-5.1); TOTAL PROTEIN, SERUM 7.2 g/dL (6.0-8.3)
[2019-06-02 07:30] VITALS: BP 148/80
[2019-06-02] MEDS: HONEY 1 APPL/ML TUBE TP SCH (09:00)
--- NOTE | 2019-06-02 10:23 | NUR ---
CM Note: [facility] vicente CM spoke to Brandee saunders/Yaneli, pt has denial. [facility] does not do appeal. Pt has no service connection for SNF. Pt made aware option will be home w/HH. Pt lives alone, and still w/complain of pain, it will be difficult for pt to take care of himself at home. Will wait for Dr Payne's recommendations. Nohemi LUMBER CHAIN OFFBEARER made aware of denial and options. As per Nohemi, will wait for Dr Payne. Dr Payne made aware, awaiting to round and give recommendations. Primary nurse aware. CM to cont to follow up.
[2019-06-02] MEDS: ENOXAPARIN SODIUM 40 MG/0.4 ML SYRINGE SQ SCH (10:57)
[2019-06-02 11:00] VITALS: BP 129/90
--- NOTE | 2019-06-02 14:29 | NUR ---
CM Note: [facility] pending to reconsider [facility] approval CM spoke to Dr Payne. MD requested to have culture results and updated clinicals forwarded to Dr Blanco w/[facility] to MD to re-evaluate. Faxed cultures results, updated clinicals, MARS to [facility], confirmation received. Spoke to Nanette saunders/[place], informed of clinicals to be forwarded to Dr Blanco for review. Pt pending approval for [employer]. Primary nurse aware. CM to cont to follow up.
[2019-06-02 20:58] VITALS: BP 132/58
[2019-06-02] MEDS: DIPHENHYDRAMINE HCL 25 MG CAPSULE PO PRN (21:22)
[2019-06-02] MEDS: ACETAMINOPHEN-CODEINE 300/30MG TAB PO PRN (21:23)
[2019-06-03] MEDS: ACETAMINOPHEN-CODEINE 300/30MG TAB PO PRN ×3 (03:51→22:05)
[2019-06-03 04:00] VITALS: BP 140/66
[2019-06-03] MEDS: MORPHINE SULFATE 4 MG/1ML SYG IVP PRN (05:33)
[2019-06-03 06:09] LABS: BASOPHILS % (AUTO) 1.3 % (0.0-5.0); EOSINOPHILS % (AUTO) 7.1 % (0.0-8.0); HEMATOCRIT 36.6 % (42-54); LYMPHOCYTES % (AUTO) 22.2 % (21.0-51.0); MEAN CORPUSCULAR HEMOGLOBIN 26.1 pg (27.0-33.0); MEAN CORPUSCULAR HGB CONC 30.1 g/dL (32.0-36.0); MEAN CORPUSCULAR VOLUME 86.7 fL (79-99); NEUTROPHILS % (AUTO) 56.8 % (40.0-77.0); PLATELET COUNT (AUTO) 257 K/uL (130-400); RED BLOOD CELL COUNT(AUTO) 4.22 MIL/uL (4.50-6.20); RED CELL DISTRIBUTION WIDTH 15.2 % (11.0-15.5); WHITE BLOOD COUNT (AUTO) 6.2 K/uL (4.8-10.8)
[2019-06-03 06:32] LABS: BILIRUBIN,TOTAL 0.2 mg/dL (0.2-1.0); CREATININE 1.5 mg/dL (0.5-1.5); POTASSIUM 4.8 mmol/L (3.5-5.1); TOTAL PROTEIN, SERUM 6.6 g/dL (6.0-8.3)
[2019-06-03] MEDS: ZOSYN 3.375GM+NS 50ML 50 ML IV SCH ×3 (06:34→21:34)
[2019-06-03 07:30] VITALS: BP 127/56
[2019-06-03] MEDS: ENOXAPARIN SODIUM 40 MG/0.4 ML SYRINGE SQ SCH (09:00)
[2019-06-03] MEDS: HONEY 1 APPL/ML TUBE TP SCH (09:00)
--- NOTE | 2019-06-03 15:00 | NUR ---
PT ANGRY STATES HE WANTS TO LEAVE AMA, STATES HE HAS NOT BEEN SEEN BY A PHYSICIAN IN 9 DAYS, EXPLAINED TO PATIENT AND A NEIGHBOR POA IN ROOM, PATIENT HAS BEEN SEEN BY DR SCRUGGS WELL DR Julien FLORES NURSE ROUNDED WITH BOTH PHYSICIANS, PT DENIES BEING SEEN. PT STATES HE WANTS TO BE SEEN BY A SURGEON STATES HE WANTS HIS WOUNDS TO BE SUTURED, EXPLAINED TO PATIENT HE HAS STASIS ULCERS AND CANNOT SIMPLY BE SUTURED, NO INDICATION OF UNDERSTANDING BY PATIENT OR NEIGHBOR POA, REFUSES TO LISTEN, REQUESTING A SURGEON. INFORMED PRIMARY DOCTOR. PT IS BEING SEEN BY DR GAYTAN, PLACED CALL TO DR GAYTAN STATES HE WILL SEE PATIENT TODAY, PT INFORMED.
[2019-06-03] MEDS: VANCOMYCIN 1GM+NS 250ML 250 ML IV SCH (18:26)
--- NOTE | 2019-06-03 18:47 | NUR ---
ADVISED BY DR. SCRUGGS THAT [facility] WILL NOT APPROVE [facility]
--- NOTE | 2019-06-03 19:30 | NUR ---
ACCEPTANCE? WAS JUST ADVISED BY YANNA VALDERRAMA THAT DIRECTOR IVORY SAID THAT PATIENT WAS ACCEPTED AT [facility]. CONFIRMED W CHARGE WAYNE SHE HAD RECD THE SAME MESSAGE AND COULD DC PROCESS BE STARTED.? ADVISED GABRIELA THAT THE ACCEPTANCE HAS NOT BEEN RECD BY CASE MANAGEMENT THE WAY IT NORMALLY IS
[2019-06-03 20:21] VITALS: BP 132/55
[2019-06-03] MEDS: DIPHENHYDRAMINE HCL 25 MG CAPSULE PO PRN (22:05)
[2019-06-04 00:02] VITALS: BP 141/68
[2019-06-04 04:00] VITALS: BP 148/88
[2019-06-04] MEDS: ZOSYN 3.375GM+NS 50ML 50 ML IV SCH ×2 (04:38→14:04)
[2019-06-04] MEDS: MORPHINE SULFATE 4 MG/1ML SYG IV PRN ×2 (04:39→19:32)
[2019-06-04 05:22] LABS: EOSINOPHILS % (AUTO) 5.1 % (0.0-8.0); HEMATOCRIT 36.5 % (42-54); LYMPHOCYTES % (AUTO) 20.9 % (21.0-51.0); MEAN CORPUSCULAR HEMOGLOBIN 26.6 pg (27.0-33.0); MEAN CORPUSCULAR VOLUME 85.9 fL (79-99); MONOCYTES % (AUTO) 10.1 % (3.0-13.0); NEUTROPHILS % (AUTO) 62.5 % (40.0-77.0); PLATELET COUNT (AUTO) 271 K/uL (130-400); RED BLOOD CELL COUNT(AUTO) 4.25 MIL/uL (4.50-6.20); RED CELL DISTRIBUTION WIDTH 15.2 % (11.0-15.5); WHITE BLOOD COUNT (AUTO) 6.9 K/uL (4.8-10.8)
[2019-06-04 05:41] LABS: ALBUMIN 2.1 g/dL (3.5-5.0); BILIRUBIN,TOTAL 0.2 mg/dL (0.2-1.0); CREATININE 1.2 mg/dL (0.5-1.5); TOTAL PROTEIN, SERUM 6.8 g/dL (6.0-8.3)
[2019-06-04] MEDS: VANCOMYCIN 1GM+NS 250ML 250 ML IV SCH ×2 (06:40→19:32)
[2019-06-04 08:15] VITALS: BP 128/65
[2019-06-04] MEDS: ENOXAPARIN SODIUM 40 MG/0.4 ML SYRINGE SQ SCH (08:54)
[2019-06-04] MEDS: HONEY 1 APPL/ML TUBE TP SCH (08:56)
[2019-06-04] MEDS: DIPHENHYDRAMINE HCL 25 MG CAPSULE PO PRN (11:02)
[2019-06-04] MEDS: ACETAMINOPHEN-CODEINE 300/30MG TAB PO PRN ×2 (11:03→19:41)
[2019-06-04 12:00] VITALS: BP 115/59
--- NOTE | 2019-06-04 12:00 | NUR ---
[facility] . updated primary nurse.
--- NOTE | 2019-06-04 17:55 | NUR ---
Attempted to call report; facility nurse asked to call back in 45 minutes as room is not ready
--- NOTE | 2019-06-04 18:45 | NUR ---
Attempted to call report multiple times; [facility] staff stated that room was not ready at 1740 and to call back at 1800. Called back at 1800 and nurse not available. Called at 1820 and nurse again busy. Waiting on hold to give report at this time.
--- NOTE | 2019-06-04 19:01 | NUR ---
Report given to [facility];EMS called for transport.
== END 2019-06-04 22:00 | DRG 872 ==
LOC: EDH 15:19 → EDHIP 16:15 → OBSVTOIN 16:15 → 4DH 20:55
PROVIDERS: ADMIT Internal Medicine; ATTEND Internal Medicine
DX: A41.9 Sepsis, unspecified organism (principal); L03.116 Cellulitis of left lower limb; L97.929 Non-pressure chronic ulcer of unspecified part of left lower leg with unspecified severity; L97.919 Non-pressure chronic ulcer of unspecified part of right lower leg with unspecified severity; L03.115 Cellulitis of right lower limb; E66.01 Morbid (severe) obesity due to excess calories; D64.9 Anemia, unspecified; I10 Essential (primary) hypertension; I87.8 Other specified disorders of veins; L23.9 Allergic contact dermatitis, unspecified cause; L98.419 Non-pressure chronic ulcer of buttock with unspecified severity; N28.9 Disorder of kidney and ureter, unspecified; E11.621 Type 2 diabetes mellitus with foot ulcer; I83.009 Varicose veins of unspecified lower extremity with ulcer of unspecified site; E11.51 Type 2 diabetes mellitus with diabetic peripheral angiopathy without gangrene; Z68.38 Body mass index [BMI] 38.0-38.9, adult
CPT/HCPCS: 36415; 80048; 80053; 80202; 81003; 83605; 83880; 84145; 84484; 85025; 85610; 85651; 85730; 86140; 87040; 87070; 87077; 87186; 93005; 97039; G0378; J1170; J1650; J2270; J2405; J2543; J3370; J3490; J7030; Q0163